=== PATIENT | male | born 1955 | race Caucasian/White ===

== ENCOUNTER 2016-08-17 19:37 | Emergency (ER) | payer MEDICARE, OTHER ==
[~2016-08-17] VITALS: Ht 182.9 cm; Wt 96.0 kg
[~2016-08-17 19:37] MED LIST: ALBU8.5H3 INH; AMLO-145 PO; CIPR500T4 PO; CYCL-319 PO; DIAZ5TAB4 PO; DOCU-144 PO; HYDR-762 PO; LISI10TA2 PO; MESA400C PO; METH10TA2 PO; PANT40TA4 PO
[2016-08-17 20:03] VITALS: Ht 182.9 cm; Wt 96.0 kg
[2016-08-17] MEDS ORDERED: SOD CHLORIDE 0.9% 1,000 ML IV ONE (21:30)
[2016-08-17] MEDS ORDERED: HYDROCODONE/APAP (5/325) TAB PO ONE (21:30)
[2016-08-17] MEDS ORDERED: CLINDAMYCIN 900 MG/D5W (PMX) 50 ML IVPB SCH (21:30)
[2016-08-17 22:25] LABS: ADD SCAN DIFF NO
[2016-08-17 22:28] LABS: BASOPHIL # 0.1 10^3/ul (0.0-0.1); BASOPHILS % 0.5 % (0.0-2.0); EOSINOPHILS # 0.2 10^3/ul (0.0-0.5); HEMATOCRIT 47.3 % (42.0-52.0); HEMOGLOBIN 15.7 g/dl (14.0-18.0); LYMPHOCYTES # 2.3 10^3/ul (0.8-2.9); LYMPHOCYTES % 21.4 % (15.0-51.0); MEAN CORPUSCULAR HEMOGLOBIN 33.7 pg (29.0-33.0); MEAN CORPUSCULAR HGB CONC 33.2 g/dl (32.0-37.0); MEAN CORPUSCULAR VOLUME 101.5 fl (82.0-101.0); MONOCYTE # 0.9 10^3/ul (0.3-0.9); NEUTROPHIL # 7.4 10^3/ul (1.6-7.5); NEUTROPHILS % 67.7 % (39.0-77.0); PLATELET COUNT 173 10^3/UL (140-415); RED BLOOD COUNT 4.66 10^6/ul (4.70-6.10); RED CELL DISTRIBUTION WIDTH 14.9 % (11.5-14.5); WHITE BLOOD COUNT 10.9 10^3/ul (4.8-10.8)
[2016-08-17] MEDS ORDERED: HYDROmorphONE 1 MG/ML SYG IV ONE (23:35)
--- NOTE | 2016-08-17 23:54 | RADRPT ---
PROCEDURE: XR Foot. CLINICAL INDICATION: Trauma. TECHNIQUE: 2.0 views of the left foot was obtained. COMPARISON: There are no similar studies submitted for comparison. FINDINGS: There is normal bone mineralization. There is no acute fracture or dislocation. No osseous erosions are identified. The joint spaces are within normal limits. There is no soft tissue swelling. IMPRESSION: No acute fracture or dislocation. RPTAT: HIKT .Miky Abebe MD, MD Date Time Electronically viewed and signed by .Miky Abebe MD, MD on 08/17/2016 23:54 .T/
--- NOTE | 2016-08-18 00:51 | ERD ---
ER Documentation Chief Complaint Date/Time DATE: 08/18/16 TIME: 00:49 Chief Complaint left foot swelling x 3 days> denies trauma HPI This pleasant 60-year-old male patient presents to the emergency department for left lower extremity swelling, warmth, pain with ambulating, denies any incident of trauma. Patient reports symptoms 5 days after cleaning a dirty pool and exposure to throny [place] Patient's biggest concern is pain. Patient reports high pain tolerance on methadone from pain management. ROS All systems reviewed and are negative except as per history of present illness. Medications Home Meds Active Scripts Clindamycin Hcl* (Clindamycin Hcl*) 300 Mg Capsule, 300 MG PO TID for 10 Days, CAP Prov:GAUDENCIOWARNER 08/18/16 Ciprofloxacin Hcl* (Ciprofloxacin Hcl*) 500 Mg Tablet, 500 MG PO BID for 7 Days , TAB Prov:AMY CORRALES MD 09/17/15 Docusate Sodium* (Colace*) 100 Mg Capsule, 100 MG PO TID, #30 CAP Prov:AMY CORRALES MD 09/17/15 Hydrocodone Bit-Acetaminophen* ([place]*) 10-325 Mg Tablet, 1 TAB PO Q6 Y for PAIN , #12 TAB Prov:AMY CORRALES MD 09/17/15 Reported Medications Diazepam* (Diazepam*) 5 Mg Tablet, 5-10 MG PO Q12, TAB 09/17/15 Albuterol Sulfate* (Proair HFA*) 8.5 Gm Hfa.aer.ad, 2 PUFF INH Q4H WHILE AWAKE Y for WHEEZING AND SOB, #1 INHALER 09/17/15 Cyclobenzaprine Hcl* (Cyclobenzaprine Hcl*) 10 Mg Tablet, 10 MG PO BID Y for MUSCLE SPASMS, #60 TAB 09/16/15 Pantoprazole* (Pantoprazole*) 40 Mg Tablet.dr, 40 MG PO AC BREAKFAST, TAB 09/16/15 Lisinopril* (Lisinopril*) 10 Mg Tablet, 10 MG PO DAILY, #30 TAB 09/16/15 Mesalamine* (Delzicol*) 400 Mg Capsule.dr, 400 MG PO QID, #120 CAP 09/16/15 Amlodipine Besylate* (Amlodipine Besylate*) 5 Mg Tablet, 5 MG PO DAILY, #30 TAB 09/16/15 Methadone Hcl* (Methadone*) 10 Mg Tab, 20 MG PO QHS, TAB 12/01/14 Methadone Hcl* (Methadone*) 10 Mg Tab, 30 MG PO AM, TAB 12/01/14 Allergies Allergies: Coded Allergies: codeine (Verified Allergy, Unknown, hives, 08/17/16) zolpidem (Verified Allergy, Unknown, sllep walking, 08/17/16) PMhx/Soc History of Surgery: Yes (R KNEE ) Anesthesia Reaction: No Hx Neurological Disorder: No Hx Respiratory Disorders: Yes (COPD) Hx Cardiac Disorders: Yes (HTN) Hx Psychiatric Problems: No Hx Miscellaneous Medical Probl: Yes (kidney stones, RA, cirrhosis, gallstones back pain) Hx Alcohol Use: No Hx Substance Use: No Hx Tobacco Use: Yes (6-8/DAY) Smoking Status: Current every day smoker Physical Exam Vitals Vitals stable, triage notes reviewed Physical Exam Const: Well-nourished, well-hydrated, afebrile in no acute Head: Atraumatic Eyes: Normal Conjunctiva, PERRLA, EOMI ENT: Normal External Ears, Nose and Mouth. Mucous membranes moist Neck: Full range of motion..~ No meningismus. Resp: Respirations even and unlabored, no respiratory distress Cardio: Abd: Skin: Left lateral and mid aspect of foot presents with edema, erythema, skin intact without oozing lesion or localized induration or firmness. Back: No midline or flank tenderness Ext: Lower Extremity - bilateral: Skin: No laceration or obvious bony deformity Compartments: Soft Motor: Full active range of motion hip/knee/ankle/foot, flexion extension and rotation of ankle without deficit Sensation: Intact to light touch FDWS/MF/LF/P surfaces. Bones: Nontender pelvis/knee/proximal tibia/ malleoli/foot, no fifth metatarsal tenderness Joints: No effusion or laxity Pulses/Perfusion: 1+ DP, Capillary refill < 2 seconds Neur: Awake and alert Psych: Normal Mood and Affect Results 24 hrs Laboratory Tests Test 08/17/16 22:15 White Blood Count 10.910^3/ul Red Blood Count 4.6610^6/ul Hemoglobin 15.7g/dl Hematocrit 47.3% Mean Corpuscular Volume 101.5fl Mean Corpuscular Hemoglobin 33.7pg Mean Corpuscular Hemoglobin Concent 33.2g/dl Red Cell Distribution Width 14.9% Platelet Count 89006^3/UL Mean Platelet Volume 10.0fl Neutrophils % 67.7% Lymphocytes % 21.4% Monocytes % 8.0% Eosinophils % 2.0% Basophils % 0.5% Nucleated Red Blood Cells % 0.0/100WBC Neutrophils # 7.410^3/ul Lymphocytes # 2.310^3/ul Monocytes # 0.910^3/ul Eosinophils # 0.210^3/ul Basophils # 0.110^3/ul Nucleated Red Blood Cells # 0.010^3/ul Current Medications Medications (Trade) Dose Ordered Sig/Spring Route PRN Reason Start Time Stop Time Status Last Admin Dose Admin Sodium Chloride 1,000 ml @ 1,000 mls/hr Q1H ONCE IV 08/17/16 21:30 08/17/16 22:29 DC 08/17/16 22:15 Clindamycin HCl/ Dextrose (Cleocin 900 Mg/ D5W (Pmx)) 50 ml @ 50 mls/hr ONCE IVPB 08/17/16 21:30 08/17/16 22:29 DC 08/17/16 22:14 Acetaminophen/ Hydrocodone Bitart ([place] (5/325)) 1 tab ONCE ONCE PO 08/17/16 21:30 08/17/16 21:31 DC 08/17/16 22:01 Hydromorphone HCl (Dilaudid) 1 mg ONCE ONCE IV 08/17/16 23:35 08/17/16 23:36 DC 08/17/16 23:40 Diphtheria/ Tetanus/Acell Pertussis (Adacel) 0.5 ml ONCE ONCE IM* 08/18/16 01:00 08/18/16 01:01 DC 08/18/16 01:11 Interpretation text CBC shows no evidence of hemorrhage or infection Procedures/MDM PROCEDURE: XR Foot. CLINICAL INDICATION: Trauma. TECHNIQUE: 2.0 views of the left foot was obtained. COMPARISON: There are no similar studies submitted for comparison. FINDINGS: There is normal bone mineralization. There is no acute fracture or dislocation. No osseous erosions are identified. The joint spaces are within normal limits. There is no soft tissue swelling. IMPRESSION: No acute fracture or dislocation. Electronically viewed and signed by .Miky Abebe MD, MD on 08/17/2016 23:54 This pleasant 60-year-old male patient presents to emergency department today for evaluation and treatment of the skin infection, patient reports cleaning a dirty pool being exposed to fill free water and being stuck by a [place] tree. Patient's foot is hot with edema and erythema, patient treated with IV clindamycin 900 mg, tetanus vaccine update, and [place] for pain control. Patient discharged home on oral clindamycin 300 mg 4 times daily 10 days, continue pain control as ordered by pain management. Return to emergency department for evaluation for worsening of current symptoms pain, edema, erythema, fever nausea chills. Patient instructed to keep leg elevated, stay non-ambulating as much as possible. Needs reevaluation in emergency department or primary care physician in 48 hours. I feel the patient is stable for discharge at this time outpatient management by primary care physician. I have discussed results, examination findings, the treatment plan with the patient and family present prior to discharge. Indications for emergent reevaluation, side effects of medication were also discussed. All questions were answered. Patient verbalizes understanding and agrees with plan of care. Departure Diagnosis: Primary Impression: Cellulitis Site of cellulitis: extremity Site of cellulitis of extremity: lower extremity Laterality: left Qualified Code: L03.116 - Cellulitis of left lower extremity Condition: Good Patient Instructions: Cellulitis Additional Instructions: Thank you for for coming to [facility] for your care today. Please ask your nurse or provider if you have questions about your care today and do not leave until all your questions have been answered. Please use any medications given as directed and follow-up with your doctor (or the doctor you were referred to) in the next 2-3 days. If you do not have a primary care doctor [place] [facility] [place] You may also use motrin and tylenol as needed for fever and/or pain unless instructed otherwise by your provider or nurse. Indications for more urgent follow-up have been discussed, but you may return to the Emergency Department at ANY time for any worrisome or worsening symptoms. If you have abdominal pain, please know that no test or exam you received is perfect and you should follow up within 8 hours for continued pain. If you had any imaging studies today, such as an X-Ray or CT Scan, these studies will be reviewed later by a radiologist. You will be called if there are important findings that were not identified today, so make sure the contact information you provided at registration is correct. If you received any narcotic pain control medicine today, such as Vicodin, Morphine or Dilaudid, your coordination and judgment may be affected for a number of hours. Please do not drive or operate heavy machinery, and you may want someone to assist you at home. If you were given a prescription for narcotic medication, be aware that it is very addictive- use sparingly and only if necessary. WARNER RATLIFF Aug 18, 2016 00:51
[2016-08-18] MEDS ORDERED: CLIN-73 PO (00:52)
[2016-08-18] MEDS ORDERED: DIPHTH/TET/ACEL PERTUSS (ADULT) 0.5 ML VIAL IM* ONE (01:00)
[2016-08-18 01:18] VITALS: BP 127/68; PULSE 62; RESP 16; TEMP 98.8
== END 2016-08-18 01:21 | disposition home or self-care (01) ==
LOC: FTE 19:37
DX: L03.116 Cellulitis of left lower limb (principal); I10 Essential (primary) hypertension; J44.9 Chronic obstructive pulmonary disease, unspecified; F17.210 Nicotine dependence, cigarettes, uncomplicated; Z23 Encounter for immunization
CPT/HCPCS: 73620; 85025; 90715; J1170; J7030; 90471; 96374; 96375

== ENCOUNTER 2016-09-05 15:28 | Emergency (ER) | payer MEDICARE, OTHER ==
[~2016-09-05] VITALS: Ht 172.7 cm; Wt 87.8 kg
[~2016-09-05 15:28] MED LIST changes: +CLIN-73 PO
[2016-09-05 15:31] VITALS: Ht 172.7 cm; Wt 87.8 kg
[2016-09-05] MEDS ORDERED: ONDANSETRON 4 MG INJ IV STA (16:06)
[2016-09-05] MEDS ORDERED: SOD CHLORIDE 0.9% 1,000 ML IV STA (16:06)
[2016-09-05] MEDS ORDERED: HYDROmorphONE 1 MG/ML SYG IV STA (16:06)
[2016-09-05 17:01] LABS: ADD SCAN DIFF NO
[2016-09-05 17:04] LABS: BASOPHIL # 0.1 10^3/ul (0.0-0.1); BASOPHILS % 0.9 % (0.0-2.0); EOSINOPHILS # 0.2 10^3/ul (0.0-0.5); EOSINOPHILS % 2.8 % (0.0-7.0); HEMOGLOBIN 18.3 g/dl (14.0-18.0); LYMPHOCYTES # 1.8 10^3/ul (0.8-2.9); MEAN CORPUSCULAR HEMOGLOBIN 33.2 pg (29.0-33.0); MEAN CORPUSCULAR HGB CONC 33.3 g/dl (32.0-37.0); MEAN CORPUSCULAR VOLUME 99.6 fl (82.0-101.0); MEAN PLATELET VOLUME 9.5 fl (7.4-10.4); MONOCYTE # 0.7 10^3/ul (0.3-0.9); MONOCYTES % 7.9 % (0.0-11.0); NEUTROPHIL # 5.7 10^3/ul (1.6-7.5); NEUTROPHILS % 66.8 % (39.0-77.0); PLATELET COUNT 193 10^3/UL (140-415); RED BLOOD COUNT 5.52 10^6/ul (4.70-6.10); RED CELL DISTRIBUTION WIDTH 14.4 % (11.5-14.5); WHITE BLOOD COUNT 8.5 10^3/ul (4.8-10.8)
[2016-09-05] MEDS ORDERED: AMLO-147 PO (17:14)
[2016-09-05 17:15] VITALS: BP 137/95; PULSE 78; RESP 18
[2016-09-05] MEDS ORDERED: LISI40TA9 PO (17:15)
[2016-09-05] MEDS ORDERED: CYCL-319 PO (17:16)
[2016-09-05] MEDS ORDERED: DIAZ10TA4 PO (17:16)
[2016-09-05] MEDS ORDERED: BECL8.7A5 INH (17:17)
[2016-09-05 17:28] LABS: ALANINE AMINOTRANSFERASE 32 IU/L (13-69); ALBUMIN 4.8 g/dl (3.3-4.9); ALBUMIN/GLOBULIN RATIO 1.54; ALKALINE PHOSPHATASE 72 IU/L (42-121); ANION GAP 13 (8-16); ASPARTATE AMINO TRANSFERASE 38 IU/L (15-46); BILIRUBIN,INDIRECT 0.1 mg/dl (0-1.1); BILIRUBIN,TOTAL 0.1 mg/dl (0.2-1.3); BLOOD UREA NITROGEN 7 mg/dl (7-20); CALCIUM 9.2 mg/dl (8.4-10.2); CARBON DIOXIDE 29 mmol/L (21-31); CHLORIDE 100 mmol/L (97-110); CREATININE 1.14 mg/dl (0.61-1.24); GLUCOSE 110 mg/dl (70-220); SODIUM 138 mmol/L (135-144); TOTAL PROTEIN 7.9 g/dl (6.1-8.1)
[2016-09-05] MEDS ORDERED: IOHEXOL 300MG/ML 150 ML BTL ONE (17:53)
[2016-09-05] MEDS ORDERED: SOD CHLORIDE 0.9% 100 ML ONE (17:53)
--- NOTE | 2016-09-05 19:10 | ERA ---
ER Documentation Chief Complaint Date/Time DATE: 09/05/16 TIME: 19:09 Chief Complaint AP X 6 DAYS HPI This is a 60-year-old male who says he has had increasing lower abdominal pain over the past 6 days. The pain began in bilateral lower quadrants is tending to spread upwards. The patient feels like his abdominal cavity is a bit swollen. He says it is somewhat worse after eating. He says he is having small bowel movements he has no vomiting or nausea. Denies any fever dysuria back pain. Patient states she has had several colonoscopies which have been unremarkable. ROS All systems reviewed and are negative except as per history of present illness. Medications Home Meds Reported Medications Beclomethasone Dip* (Qvar 80*) 7.3 Gm Inha, 1 PUFF INH BID, #1 INHALER 09/05/16 Cyclobenzaprine Hcl* (Cyclobenzaprine Hcl*) 10 Mg Tablet, 10 MG PO BID Y for PRN , #60 TAB 09/05/16 Diazepam* (Diazepam*) 10 Mg Tablet, 15 MG PO BID, TAB 09/05/16 Lisinopril* (Lisinopril*) 40 Mg Tablet, 40 MG PO DAILY, #30 TAB 09/05/16 Amlodipine Besylate* (Amlodipine Besylate*) 10 Mg Tablet, 10 MG PO DAILY, #30 TAB 09/05/16 Albuterol Sulfate* (Proair HFA*) 8.5 Gm Hfa.aer.ad, 2 PUFF INH Q4H WHILE AWAKE Y for WHEEZING AND SOB, #1 INHALER 09/17/15 Pantoprazole* (Pantoprazole*) 40 Mg Tablet.dr, 40 MG PO AC BREAKFAST, TAB 09/16/15 Methadone Hcl* (Methadone*) 10 Mg Tab, 20 MG PO QHS, TAB 12/01/14 Methadone Hcl* (Methadone*) 10 Mg Tab, 30 MG PO AM, TAB 12/01/14 Discontinued Reported Medications Diazepam* (Diazepam*) 5 Mg Tablet, 5-10 MG PO Q12, TAB 09/17/15 Cyclobenzaprine Hcl* (Cyclobenzaprine Hcl*) 10 Mg Tablet, 10 MG PO BID Y for MUSCLE SPASMS, #60 TAB 09/16/15 Lisinopril* (Lisinopril*) 10 Mg Tablet, 10 MG PO DAILY, #30 TAB 09/16/15 Mesalamine* (Delzicol*) 400 Mg Capsule.dr, 400 MG PO QID, #120 CAP 09/16/15 Amlodipine Besylate* (Amlodipine Besylate*) 5 Mg Tablet, 5 MG PO DAILY, #30 TAB 09/16/15 Discontinued Scripts Clindamycin Hcl* (Clindamycin Hcl*) 300 Mg Capsule, 300 MG PO TID for 10 Days, CAP Prov:GAUDENCIO,WARNER 08/18/16 Ciprofloxacin Hcl* (Ciprofloxacin Hcl*) 500 Mg Tablet, 500 MG PO BID for 7 Days , TAB Prov:AMY CORRALES MD 09/17/15 Docusate Sodium* (Colace*) 100 Mg Capsule, 100 MG PO TID, #30 CAP Prov:AMY CORRALES MD 09/17/15 Hydrocodone Bit-Acetaminophen* ([place]*) 10-325 Mg Tablet, 1 TAB PO Q6 Y for PAIN , #12 TAB Prov:AMY CORRALES MD 09/17/15 Allergies Allergies: Coded Allergies: codeine (Verified Allergy, Unknown, hives, 08/17/16) zolpidem (Verified Allergy, Unknown, sllep walking, 08/17/16) PMhx/Soc History of Surgery: Yes (R KNEE ) Anesthesia Reaction: No Hx Neurological Disorder: No Hx Respiratory Disorders: Yes (COPD) Hx Cardiac Disorders: Yes (HTN) Hx Psychiatric Problems: No Hx Miscellaneous Medical Probl: Yes (kidney stones, RA, cirrhosis, gallstones back pain) Hx Alcohol Use: No Hx Substance Use: No Hx Tobacco Use: Yes (6-8/DAY) Smoking Status: Current every day smoker FmHx Family History: No coronary disease Physical Exam Vitals Vital Signs Date Time Temp Pulse Resp B/P Pulse Ox O2 Delivery O2 Flow Rate FiO2 09/05/16 17:15 78 18 137/95 98 Room Air 09/05/16 15:31 98.1 90 20 161/90 99 Physical Exam Const: Well-developed, well-nourished Head: Atraumatic, normocephalic Eyes: Normal Conjunctiva, PERRLA, EOMI, normal sclera, no nystagmus ENT: Normal External Ears, Nose and Mouth, moist mucus membranes. Neck: Full range of motion. No meningismus, no lymphadenopathy. Resp: Clear to auscultation bilaterally, no wheezing, rhonchi, rales Cardio: Regular rate and rhythm, no murmurs, S1 S2 present Abd: Soft, diffuse moderate tenderness mostly located in the lower bilateral quadrants non distended. Normal bowel sounds, no guarding or rebound, no pulsitile abdominal masses or bruits Skin: No petechiae or rashes, no ecchymosis , no maculopapular rash Back: No midline or flank tenderness Ext: No cyanosis, or edema, FROM x 4, normal inspection, neurovascularly intact x 4 Neur: Awake and alert, STR 5/5 x 4, sensation intact x 4, no focal findings, cerebellum intact Psych: Normal Mood and Affect Result Diagram: 09/05/16 1637 09/05/16 1637 Results 24 hrs Laboratory Tests Test 09/05/16 16:37 White Blood Count 8.510^3/ul Red Blood Count 5.5210^6/ul Hemoglobin 18.3g/dl Hematocrit 55.0% Mean Corpuscular Volume 99.6fl Mean Corpuscular Hemoglobin 33.2pg Mean Corpuscular Hemoglobin Concent 33.3g/dl Red Cell Distribution Width 14.4% Platelet Count 99237^3/UL Mean Platelet Volume 9.5fl Neutrophils % 66.8% Lymphocytes % 21.0% Monocytes % 7.9% Eosinophils % 2.8% Basophils % 0.9% Nucleated Red Blood Cells % 0.0/100WBC Neutrophils # 5.710^3/ul Lymphocytes # 1.810^3/ul Monocytes # 0.710^3/ul Eosinophils # 0.210^3/ul Basophils # 0.110^3/ul Nucleated Red Blood Cells # 0.010^3/ul Sodium Level 138mmol/L Potassium Level 4.0mmol/L Chloride Level 100mmol/L Carbon Dioxide Level 29mmol/L Anion Gap 13 Blood Urea Nitrogen 7mg/dl Creatinine 1.14mg/dl Glucose Level 110mg/dl Calcium Level 9.2mg/dl Total Bilirubin 0.1mg/dl Direct Bilirubin 0.00mg/dl Indirect Bilirubin 0.1mg/dl Aspartate Amino Transf (AST/SGOT) 38IU/L Alanine Aminotransferase (ALT/SGPT) 32IU/L Alkaline Phosphatase 72IU/L Total Protein 7.9g/dl Albumin 4.8g/dl Globulin 3.10g/dl Albumin/Globulin Ratio 1.54 Lipase < 10U/L Current Medications Medications (Trade) Dose Ordered Sig/Spring Route PRN Reason Start Time Stop Time Status Last Admin Dose Admin Sodium Chloride (NS) 1,000 ml @ 1,000 mls/hr Q1H STAT IV 09/05/16 16:06 09/05/16 17:05 DC 09/05/16 16:36 Hydromorphone HCl (Dilaudid) 1 mg ONCE STAT IV 09/05/16 16:06 09/05/16 16:07 DC 09/05/16 16:36 Ondansetron HCl (Zofran Inj) 4 mg ONCE STAT IV 09/05/16 16:06 09/05/16 16:07 DC 09/05/16 16:36 IV Flush 10 ml 10 ml STK-MED ONCE .ROUTE 09/05/16 17:53 09/05/16 17:54 DC Sodium Chloride (NS) 100 ml @ ud STK-MED ONCE .ROUTE 09/05/16 17:53 09/05/16 17:54 DC Iohexol (Omnipaque 300mg/ ml) 150 ml STK-MED ONCE .ROUTE 09/05/16 17:53 09/05/16 17:54 DC Procedures/MDM PROCEDURE: CT Abdomen and Pelvis with contrast. CLINICAL INDICATION: Abdominal pain. TECHNIQUE: CT scan of the abdomen and pelvis with and without contrast was performed on a multidetector high-resolution CT scanner. The patient was scanned following the uncomplicated intravenous administration of 100 cc of Omnipaque 300. Coronal and sagittal reformatted images were obtained from the axial source images. Images were reviewed on a high-resolution PACS workstation. The following dose reduction techniques were used: Automated exposure control, adjustment of the mA and/or kV according to patient size and use of iterative reconstruction technique. The total exam CTDI equals 7.40 mGy and the total exam DLP equals 827.72 mGy-cm. COMPARISON: None. FINDINGS: CT abdomen: The lung bases are clear. The heart size is normal. No pericardial effusion identified. The liver demonstrates normal size and density. No liver mass identified. The gallbladder contains multiple, sub centimeter, high-density and low density foci, consistent with calcified gallstones and cholesterol gallstones. There is no intrahepatic or extrahepatic biliary dilatation. The spleen is normal in size. No focal splenic abnormality identified. No gross abnormality of the stomach is identified. The pancreas is atrophic. No pancreatic mass identified. The adrenal glands appear normal. The kidneys are unremarkable. There is no evidence of renal mass, renal calculi or hydronephrosis. The aorta is of normal caliber. Aortic vascular calcifications are present. No adenopathy identified. The bowel and mesentery are unremarkable. CT pelvis: The pelvic organs are normal. The pelvic sidewalls and inguinal regions are clear. The sigmoid colon and rectum are remarkable for sigmoid diverticulosis. No adenopathy, free fluid or inflammatory change identified. The osseous structures are remarkable for degenerative spondylosis of the spine. No osteolytic or osteoblastic lesion is detected. IMPRESSION: 1. No mass, lymphadenopathy, or focal acute inflammatory process is identified. 2. Cholelithiasis. 3. Atrophy of the pancreas. 4. Mild atherosclerotic peripheral vascular disease. 5. Nonobstructive nephrolithiasis with 2 mm left lower pole renal calculus. 6. Mild atherosclerotic peripheral vascular disease. RPTAT: QQ .Taqueria Maurice MD, MD Date Time Electronically viewed and signed by .Taqueria Maurice MD, MD on 09/05/2016 19: 30 .M/ CC: SABINE BARROS DO After discussing with the patient more his symptoms he says he gets bloated graduate of the day after each meal. He has a lot of gas and belching. The patient may have small intestinal bacterial overgrowth. Discussed with him how to do proper diet care and digestive enzymes. We will treat antibiotics now and see if he gets better. Departure Diagnosis: Primary Impression: Abdominal pain Qualified Code: R10.84 - Generalized abdominal pain Condition: Stable SABINE BARROS DO Sep 05, 2016 19:10
--- NOTE | 2016-09-05 19:30 | RADRPT ---
PROCEDURE: CT Abdomen and Pelvis with contrast. CLINICAL INDICATION: Abdominal pain. TECHNIQUE: CT scan of the abdomen and pelvis with and without contrast was performed on a multidet refugio high-resolution CT scanner. The patient was scanned following the uncomplicated intravenous a dministration of 100 cc of Omnipaque 300. Coronal and sagittal reformatted images were obtained fro m the axial source images. Images were reviewed on a high-resolution PACS workstation. The followin g dose reduction techniques were used: Automated exposure control, adjustment of the mA and/or kV ac cording to patient size and use of iterative reconstruction technique. The total exam CTDI equals 7. 40 mGy and the total exam DLP equals 827.72 mGy-cm. COMPARISON: None. FINDINGS: CT abdomen: The lung bases are clear. The heart size is normal. No pericardial effusion identified. The liver demonstrates normal size and density. No liver mass identified. The gallbladder contains multiple, sub centimeter, high-density and low density foci, consistent wit h calcified gallstones and cholesterol gallstones. There is no intrahepatic or extrahepatic biliary dilatation. The spleen is normal in size. No focal splenic abnormality identified. No gross abnormality of the stomach is identified. The pancreas is atrophic. No pancreatic mass identified. The adrenal glands appear normal. The kidneys are unremarkable. There is no evidence of renal mass, renal calculi or hydronephrosis. The aorta is of normal caliber. Aortic vascular calcifications are present. No adenopathy identified. The bowel and mesentery are unremarkable. CT pelvis: The pelvic organs are normal. The pelvic sidewalls and inguinal regions are clear. The sigmoid colon and rectum are remarkable for sigmoid diverticulosis. No adenopathy, free fluid or inflammatory change identified. The osseous structures are remarkable for degenerative spondylosis of the spine. No osteolytic or osteoblastic lesion is detected. IMPRESSION: 1. No mass, lymphadenopathy, or focal acute inflammatory process is identified. 2. Cholelithiasis. 3. Atrophy of the pancreas. 4. Mild atherosclerotic peripheral vascular disease. 5. Nonobstructive nephrolithiasis with 2 mm left lower pole renal calculus. 6. Mild atherosclerotic peripheral vascular disease. RPTAT: QQ .Taqueria Maurice MD, Date Time Electronically viewed and signed by .Taqueria Maurice MD, on 09/05/2016 19:30 .M/
[2016-09-05] MEDS ORDERED: METR500T PO (19:51)
[2016-09-05] MEDS ORDERED: CIPR500T4 PO (19:51)
== END 2016-09-05 20:02 | disposition home or self-care (01) ==
LOC: E/R 15:28
DX: R10.84 Generalized abdominal pain (principal); I10 Essential (primary) hypertension; J44.9 Chronic obstructive pulmonary disease, unspecified; F17.210 Nicotine dependence, cigarettes, uncomplicated
CPT/HCPCS: 74177; 80053; 83690; 85025; J1170; J2405; J7030; Q9967; 36415; 96374; 96375

== ENCOUNTER 2016-11-09 14:16 | Emergency (ER) | payer MEDICARE, OTHER ==
[~2016-11-09 14:16] MED LIST changes: -AMLO-145 PO; +AMLO-147 PO; +BECL8.7A5 INH; -CLIN-73 PO; +DIAZ10TA4 PO; -DIAZ5TAB4 PO; -DOCU-144 PO; -HYDR-762 PO; -LISI10TA2 PO; +LISI40TA9 PO; -MESA400C PO; +METR500T PO
[2016-11-10] MEDS ORDERED: HYDR-902 PO ×2 (01:14→03:03)
== END 2016-11-09 15:22 | disposition left against medical advice (07) ==
LOC: E/R 14:16
DX: Z53.21 Procedure and treatment not carried out due to patient leaving prior to being seen by health care provider (principal)

== ENCOUNTER 2016-11-09 20:13 | Emergency (ER) | payer MEDICARE, MEDICAID ==
[~2016-11-09] VITALS: Ht 177.8 cm; Wt 94.5 kg
[2016-11-09 20:19] VITALS: Ht 177.8 cm; Wt 94.5 kg
[2016-11-09] MEDS ORDERED: ONDANSETRON 4 MG INJ IV STA (23:46)
[2016-11-09] MEDS ORDERED: morphine 4 MG/ML VIAL IV STA (23:46)
[2016-11-09] MEDS ORDERED: SOD CHLORIDE 0.9% 500 ML IV STA (23:46)
--- NOTE | 2016-11-10 01:02 | RADRPT ---
PROCEDURE: Chest. CLINICAL INDICATION: Chest pain. TECHNIQUE: Single frontal view of the chest was obtained. COMPARISON: 06/06/2013. FINDINGS: The cardiac silhouette is within normal limits. The aortic arch is calcified. There is no focal co nsolidation, vascular congestion or pleural effusion. There is no pneumothorax. IMPRESSION: No evidence for active cardiopulmonary disease. Aortic atherosclerosis. .Dequan Shane MD, MD Date Time Electronically viewed and signed by .Dequan Shane MD, on 11/10/2016 01:01 .T/
[2016-11-10 01:12] LABS: BASOPHIL # 0.1 10^3/ul (0.0-0.1); BASOPHILS % 0.9 % (0.0-2.0); EOSINOPHILS # 0.2 10^3/ul (0.0-0.5); EOSINOPHILS % 3.1 % (0.0-7.0); HEMATOCRIT 54.9 % (42.0-52.0); HEMOGLOBIN 18.6 g/dl (14.0-18.0); LYMPHOCYTES # 2.6 10^3/ul (0.8-2.9); LYMPHOCYTES % 33.7 % (15.0-51.0); MEAN CORPUSCULAR HEMOGLOBIN 32.9 pg (29.0-33.0); MEAN CORPUSCULAR HGB CONC 33.9 g/dl (32.0-37.0); MEAN PLATELET VOLUME 10.4 fl (7.4-10.4); MONOCYTE # 0.6 10^3/ul (0.3-0.9); MONOCYTES % 7.8 % (0.0-11.0); NEUTROPHILS % 54.4 % (39.0-77.0); PLATELET COUNT 186 10^3/UL (140-415); RED BLOOD COUNT 5.66 10^6/ul (4.70-6.10); WHITE BLOOD COUNT 7.8 10^3/ul (4.8-10.8)
[2016-11-10] MEDS ORDERED: HYDR-902 PO ×2 (01:14→03:03)
--- NOTE | 2016-11-10 01:32 | RADRPT ---
PROCEDURE: CT Abdomen and Pelvis without contrast. CLINICAL INDICATION: Abdominal pain TECHNIQUE: CT scan of the abdomen and pelvis without contrast was performed on a multidetector hig h-resolution CT scanner. The patient was scanned without intravenous contrast. Coronal and sagittal reformatted images were obtained from the axial source images. Images were reviewed on a high-resol [employer] PACS workstation. The total exam CTDI equals 18.02 mGy and the total exam DLP equals 1105.77 m Gy-cm. One or more the following dose reduction techniques were utilized: Automated exposure control, adjus tment of the mA and / or kV according to patient's size, or use of iterative reconstruction techniqu e. COMPARISON: 09/05/2016 FINDINGS: Mild linear atelectasis/fibrosis at lung bases. No pneumoperitoneum is seen. Very small umbilical he rnia containing fat only again seen. Cholelithiasis again seen. No definite abnormality of the stoma ch is seen. Fatty infiltration of the pancreas again seen. No definite biliary dilatation is seen. N o abnormality seen in the spleen, adrenals or right kidney. There is a nonobstructing 2 mm calculus again seen in the left kidney. There is an approximate 1 cm cyst again seen in the mid left kidney. No imaging follow-up of this is recommended. Calcification in abdominal aorta, right renal and bilat eral iliac arteries. No abdominal aortic aneurysm is seen. No ascites is seen. No abnormality is see n in the bladder. The prostate does not appear to be significantly enlarged. No ureteral stone is se en. Phleboliths in pelvis. Small left inguinal hernia containing fat only again seen. Diverticula in sigmoid and ascending colon. There is no specific evidence of acute diverticulitis seen. There is appearance of an unremarkable appendix. No dilated small bowel loops are seen. No enlarged lymph nod es are seen in the abdomen or pelvis. Mild osteoarthrosis at hips and sacroiliac joints. Degenerativ e changes in the thoracolumbar spine. Central spinal stenosis in lumbar spine. Minimal curvature of lumbar spine with convexity to the left. IMPRESSION: Cholelithiasis again seen. Nonobstructing 2 mm calculus again seen in mid left kidney. Atheroscleros is. Small left inguinal hernia containing fat only again seen. Please see above. RPTAT: HJES .Emigdio Baker MD, MD Date Time Electronically viewed and signed by .Emigdio Baker MD, on 11/10/2016 01:31 .S/
[2016-11-10 01:39] LABS: ALANINE AMINOTRANSFERASE 46 IU/L (13-69); ALBUMIN 4.5 g/dl (3.3-4.9); ALKALINE PHOSPHATASE 59 IU/L (42-121); ANION GAP 13 (8-16); ASPARTATE AMINO TRANSFERASE 33 IU/L (15-46); BILIRUBIN,INDIRECT 0.5 mg/dl (0-1.1); BILIRUBIN,TOTAL 0.5 mg/dl (0.2-1.3); BLOOD UREA NITROGEN 9 mg/dl (7-20); CALCIUM 9.7 mg/dl (8.4-10.2); CARBON DIOXIDE 30 mmol/L (21-31); CHLORIDE 99 mmol/L (97-110); GLUCOSE 85 mg/dl (70-220); POTASSIUM 4.2 mmol/L (3.5-5.1); SODIUM 138 mmol/L (135-144); TOTAL PROTEIN 7.5 g/dl (6.1-8.1)
[2016-11-10 02:02] LABS: TROPONIN-I < 0.012 ng/ml (0.00-0.12)
[2016-11-10 02:37] LABS: ADD UMIC NO; UR ASCORBIC ACID NEGATIVE (NEGATIVE); UR BILIRUBIN (Dip) NEGATIVE (NEGATIVE); UR BLOOD (Dip) NEGATIVE (NEGATIVE); UR CLARITY CLEAR (CLEAR); UR COLOR YELLOW (YELLOW); UR GLUCOSE (Dip) NEGATIVE (NEGATIVE); UR KETONES (Dip) TRACE mg/dL (NEGATIVE); UR LEUKOCYTE ESTERASE (Dip) NEGATIVE Leu/ul (NEGATIVE); UR NITRITE (Dip) NEGATIVE (NEGATIVE); UR SPECIFIC GRAVITY (Dip) 1.009 (1.003-1.030); UR TOTAL PROTEIN (Dip) NEGATIVE (NEGATIVE); UR UROBILINOGEN (Dip) NEGATIVE (NEGATIVE)
--- NOTE | 2016-11-10 03:01 | ERD ---
ER Documentation Chief Complaint Date/Time DATE: 11/10/16 TIME: 03:00 Chief Complaint mid abd pain x 1 week HPI This is a 60-year-old male comes in midabdominal pain for 1 week. Denies any fevers or chills. No nausea no vomiting. Pain is mild to moderate intensity located in the epigastric region. No other current complaints. ROS All systems reviewed and are negative except as per history of present illness. Medications Home Meds Active Scripts Ciprofloxacin Hcl* (Ciprofloxacin Hcl*) 500 Mg Tablet, 500 MG PO BID for 10 Days , TAB Prov:SABINE BARROS. DO 09/05/16 Metronidazole* (Flagyl*) 500 Mg Tablet, 500 MG PO TID for 10 Days, TAB Prov:SABINE BARROS DO 09/05/16 Reported Medications Hydrocodone/Acetaminophen (Shepherd 10-325 Tablet) 1 Each Tablet, 1 EACH PO BID, TAB 11/10/16 Beclomethasone Dip* (Qvar 80*) 7.3 Gm Inha, 1 PUFF INH BID, #1 INHALER 09/05/16 Cyclobenzaprine Hcl* (Cyclobenzaprine Hcl*) 10 Mg Tablet, 10 MG PO BID Y for PRN , #60 TAB 09/05/16 Diazepam* (Diazepam*) 10 Mg Tablet, 15 MG PO BID, TAB 09/05/16 Lisinopril* (Lisinopril*) 40 Mg Tablet, 40 MG PO DAILY, #30 TAB 09/05/16 Amlodipine Besylate* (Amlodipine Besylate*) 10 Mg Tablet, 10 MG PO DAILY, #30 TAB 09/05/16 Albuterol Sulfate* (Proair HFA*) 8.5 Gm Hfa.aer.ad, 2 PUFF INH Q4H WHILE AWAKE Y for WHEEZING AND SOB, #1 INHALER 09/17/15 Methadone Hcl* (Methadone*) 10 Mg Tab, 20 MG PO QHS, TAB 12/01/14 Methadone Hcl* (Methadone*) 10 Mg Tab, 30 MG PO AM, TAB 12/01/14 Discontinued Reported Medications Pantoprazole* (Pantoprazole*) 40 Mg Tablet.dr, 40 MG PO AC BREAKFAST, TAB 09/16/15 Allergies Allergies: Coded Allergies: codeine (Unverified Allergy, Unknown, hives, 11/10/16) zolpidem (Unverified Allergy, Unknown, sllep walking, 11/10/16) PMhx/Soc History of Surgery: Yes (R KNEE ) Anesthesia Reaction: No Hx Neurological Disorder: No Hx Respiratory Disorders: Yes (COPD) Hx Cardiac Disorders: Yes (HTN) Hx Psychiatric Problems: No Hx Miscellaneous Medical Probl: Yes (kidney stones, RA, cirrhosis, gallstones back pain) Hx Alcohol Use: No Hx Substance Use: No Hx Tobacco Use: Yes (6-8/DAY) Smoking Status: Current every day smoker Physical Exam Vitals Vital Signs Date Time Temp Pulse Resp B/P Pulse Ox O2 Delivery O2 Flow Rate FiO2 11/09/16 23:54 97.7 77 20 157/99 98 Room Air 11/09/16 20:19 97.8 89 20 174/87 97 Physical Exam Const: [] Head: Atraumatic Eyes: Normal Conjunctiva ENT: Normal External Ears, Nose and Mouth. Neck: Full range of motion..~ No meningismus. Resp: Clear to auscultation bilaterally Cardio: Regular rate and rhythm, no murmurs Abd: Soft, non tender, non distended. Normal bowel sounds Skin: No petechiae or rashes Back: No midline or flank tenderness Ext: No cyanosis, or edema Neur: Awake and alert Psych: Normal Mood and Affect Result Diagram: 11/10/16 0049 11/10/16 0049 Results 24 hrs Laboratory Tests Test 11/10/16 00:40 11/10/16 00:49 Urine Color YELLOW Urine Clarity CLEAR Urine pH 6.0 Urine Specific [place] 1.009 Urine Ketones TRACEmg/dL Urine Nitrite NEGATIVEmg/dL Urine Bilirubin NEGATIVEmg/dL Urine Urobilinogen NEGATIVEmg/dL Urine Leukocyte Esterase NEGATIVELeu/ul Urine Hemoglobin NEGATIVEmg/dL Urine Glucose NEGATIVEmg/dL Urine Total Protein NEGATIVEmg/dl White Blood Count 7.810^3/ul Red Blood Count 5.6610^6/ul Hemoglobin 18.6g/dl Hematocrit 54.9% Mean Corpuscular Volume 97.0fl Mean Corpuscular Hemoglobin 32.9pg Mean Corpuscular Hemoglobin Concent 33.9g/dl Red Cell Distribution Width 13.0% Platelet Count 52279^3/UL Mean Platelet Volume 10.4fl Neutrophils % 54.4% Lymphocytes % 33.7% Monocytes % 7.8% Eosinophils % 3.1% Basophils % 0.9% Nucleated Red Blood Cells % 0.0/100WBC Neutrophils # (Manual) 4.310^3/ul Lymphocytes # 2.610^3/ul Monocytes # 0.610^3/ul Eosinophils # 0.210^3/ul Basophils # 0.110^3/ul Nucleated Red Blood Cells # 0.010^3/ul Sodium Level 138mmol/L Potassium Level 4.2mmol/L Chloride Level 99mmol/L Carbon Dioxide Level 30mmol/L Anion Gap 13 Blood Urea Nitrogen 9mg/dl Creatinine 1.10mg/dl Glucose Level 85mg/dl Calcium Level 9.7mg/dl Total Bilirubin 0.5mg/dl Direct Bilirubin 0.00mg/dl Indirect Bilirubin 0.5mg/dl Aspartate Amino Transf (AST/SGOT) 33IU/L Alanine Aminotransferase (ALT/SGPT) 46IU/L Alkaline Phosphatase 59IU/L Troponin I < 0.012ng/ml Total Protein 7.5g/dl Albumin 4.5g/dl Globulin 3.00g/dl Albumin/Globulin Ratio 1.50 Lipase < 10U/L Current Medications Medications (Trade) Dose Ordered Sig/Spring Route PRN Reason Start Time Stop Time Status Last Admin Dose Admin Sodium Chloride (NS) 500 ml @ 500 mls/hr Q1H STAT IV 11/09/16 23:46 11/10/16 00:45 DC Morphine Sulfate (morphine) 4 mg ONCE STAT IV 11/09/16 23:46 11/09/16 23:48 DC 11/10/16 00:47 Ondansetron HCl (Zofran Inj) 4 mg ONCE STAT IV 11/09/16 23:46 11/09/16 23:48 DC 11/10/16 00:47 Procedures/MDM EKG: Rate/Rhythm: [Normal Sinus Rhythm] QRS, ST, T-waves: [No changes consistent w/ acute ischemia] Impression: [No evidence of ischemia or arrhythmia] Chest X-ray 1V Interpreted by me: Soft Tissue: No acute abnormalities Bones: No acute abnormalities Mediastinum/Cardiac Silhouette/Lungs: [No acute abnormalities] Medical decision-m[age]-year-old male with evidence of cholelithiasis on CT. Pain is currently resolved. Patient be discharged home with Shepherd and Zofran. Follow-up in 8 hours for serial abdominal exams. Departure Diagnosis: Primary Impression: Abdominal pain Abdominal location: epigastric Qualified Code: R10.13 - Epigastric pain Condition: Stable ROOSEVELT DARDEN Nov 10, 2016 03:01
[2016-11-10 03:30] VITALS: BP 102/69; PULSE 71; RESP 18; TEMP 97.6
== END 2016-11-10 03:30 | disposition home or self-care (01) ==
LOC: E/R 20:13
DX: R10.13 Epigastric pain (principal); J44.9 Chronic obstructive pulmonary disease, unspecified; I10 Essential (primary) hypertension; F17.210 Nicotine dependence, cigarettes, uncomplicated; R40.2252 Coma scale, best verbal response, oriented, at arrival to emergency department; R40.2362 Coma scale, best motor response, obeys commands, at arrival to emergency department
CPT/HCPCS: 36415; 71010; 74176; 80053; 81003; 83690; 84484; 85025; 93005; 96374; 96375; 99285; J2270; J2405; J7040